=== PATIENT | female | born 1995 ===

== ENCOUNTER 2019-07-16 18:24 | Outpatient (CLI) | payer OTHER ==
[2019-07-16 19:37] VITALS: BP 108/61
[2019-07-16 23:35] LABS: Bacteria,Urine 1+ /HPF (Negative); Bilirubin,Urine NEG (Negative); Blood,Urine NEG (Negative); Calcium Oxalate Crystals,Urine 3+; Color,Urine Amber (Yellow); Mucus,Urine 3+ /HPF; Urobilinogen,Urine < 2.0 mg/dL (<2.0)
--- NOTE | 2019-07-17 00:36 | Ultrasound Report ---
ULTRASOUND OBSTETRIC LIMITED ULTRASOUND BIOPHYSICAL PROFILE INDICATION / CLINICAL INFORMATION: labor. COMPARISON: None available. FINDINGS: BREATHING MOVEMENT = 2 GROSS BODY MOVEMENT = 2 TONE = 2 QUALITATIVE AMNIOTIC FLUID VOLUME = 2 TOTAL BIOPHYSICAL SCORE = 8/8 AMNIOTIC FLUID INDEX (cm) = 11.5 cm PRESENTATION: Cephalic. HEART RATE (beats per minute): 152 bpm ADDITIONAL FINDINGS: Placenta is located posteriorly without previa, grade 1 IMPRESSION: 1. Biophysical Score = 8/8 2. Viable single IUP in a cephalic presentation. Signer Name: Clarisse Altamirano MD Signed: 07/17/2019 12:31 AM Workstation Name: [id number]
== END 2019-07-17 00:23 | disposition home or self-care (01) ==
LOC: TRG 18:24
PROVIDERS: ATTEND Obstetrics & Gynecology
DX: O26.893 Other specified pregnancy related conditions, third trimester (principal); R10.9 Unspecified abdominal pain; Z3A.29 29 weeks gestation of pregnancy
CPT/HCPCS: 76815; 76819; 81001